=== PATIENT | female | born 1985 | race Caucasian/White ===

== ENCOUNTER 2016-05-06 10:58 | Emergency (ER) | payer OTHER ==
[2016-05-06 12:31] VITALS: BP 121/71
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
== END 2016-05-06 13:03 | disposition home or self-care (01) ==
LOC: UCEAST 10:58
DX: S16.1XXA Strain of muscle, fascia and tendon at neck level, initial encounter (principal); V49.40XA Driver injured in collision with unspecified motor vehicles in traffic accident, initial encounter; Y93.89 Activity, other specified; Y92.9 Unspecified place or not applicable
CPT/HCPCS: 99212; G0463